=== PATIENT | female | born 1955 | race Caucasian/White ===

== ENCOUNTER 2018-05-08 18:46 | Inpatient (IN) | payer OTHER ==
[~2018-05-08] VITALS: Ht 177.8 cm; Wt 97.5 kg
[2018-05-08 20:11] LABS: BASOPHILS ABSOLUTE AUTO 0.05 K/mm3 (0.00-0.23); BASOPHILS PERCENT AUTO 0 % (0-2); EOSINOPHILS ABSOLUTE AUTO 0.01 K/mm3 (0.00-0.68); EOSINOPHILS PERCENT AUTO 0 % (0-6); Hematocrit 44.6 % (33.0-51.0); Hemoglobin 14.3 g/dL (11.5-16.0); IMMATURE GRAN ABSOLUTE AUTO 0.11 K/mm3 (0.00-0.10); IMMATURE GRAN PERCENT AUTO 0 % (0-1); LYMPHOCYTES ABSOLUTE AUTO 3.34 K/mm3 (0.84-5.20); LYMPHOCYTES PERCENT AUTO 13 % (21-46); MONOCYTES ABSOLUTE AUTO 1.66 K/mm3 (0.16-1.47); MONOCYTES PERCENT AUTO 7 % (4-13); Mean Corpuscular HGB 28.3 pg (26.0-34.0); Mean Corpuscular HGB Conc 32.1 g/dL (31.5-36.5); Mean Corpuscular Volume 88 fL (80-100); Mean Platelet Volume 10.3 fL (9.1-12.4); NEUTROPHILS PERCENT AUTO 80 % (41-73); Platelet Count 403 K/mm3 (150-400); RDW Coefficient Variation 14.2 % (11.7-14.2); Red Blood Cell Count 5.05 M/mm3 (3.80-5.20); White Blood Cell Count 25.27 K/mm3 (4.00-11.30)
[2018-05-08 20:26] LABS: Base Excess Venous 1.8 mmol/L; Bicarbonate Venous 25.5 mmol/L (24.0-30.0); PCO2 Venous 42.8 mmHg (38-42); PO2 Venous 62.3 mmHg (38-42)
[2018-05-08 20:31] LABS: Albumin, Blood 3.2 g/dL (3.4-5.0); Albumin/Globulin Ratio 0.8 (0.8-1.8); Bilirubin, Total 0.8 mg/dL (0.1-1.0); Bun/Creatinine Ratio 22.4 (12.0-20.0); Calcium, Blood 8.2 mg/dL (8.5-10.1); Creatinine, Blood 1.07 mg/dL (0.40-1.00); Globulin, Blood 3.8 g/dL (2.2-4.0); Potassium, Blood 3.4 mmol/L (3.5-5.5)
[2018-05-08 20:36] LABS: Source, Urine Peds U Bag
[2018-05-08 20:43] LABS: Influenza A Negative (NEGATIVE); Influenza B Negative (NEGATIVE)
[2018-05-08 20:45] LABS: Appearance, Urine Clear (Clear); Bilirubin, Urine Neg (Neg); Blood, Urine 5+ (Neg); Color, Urine Yellow (P-Yellow); Glucose Qualitative, Urine 3+ (Neg); Ketones, Urine Neg (Neg); Leukocyte Esterase, Urine Neg (Neg); Nitrite, Urine Neg (Neg); Protein, Urine 3+ (Neg); Specific Gravity, Urine 1.015 (1.003-1.022); Urobilinogen, Urine NORM (Normal)
[2018-05-08 20:54] LABS: Bacteria Rare /hpf; Red Blood Cells, Urine 0-2 /hpf (0-2); Squamous Epithelial Cells Few /hpf (Few); White Blood Cells, Urine 0-2 /hpf (0-5)
--- NOTE | 2018-05-08 23:52 | NUR ---
SPOKE WITH MARGARETTE CASANOVA TO CLARIFY TIMING OF NEXT [facility] ASDMINISTRATION; HELD MIDNIGHT DOSE AND PHARMACY WILL RETIME NEXT ADMINISTRATION ACCORDINGLY. SHANTA CARRILLO
[2018-05-08] MEDS ORDERED: LO-DOSE ASPIRIN81 MG PO (23:57)
[2018-05-09] MEDS ORDERED: LEVSOD50 PO (00:02)
[2018-05-09] MEDS ORDERED: DULO60 PO (00:03)
[2018-05-09] MEDS ORDERED: CHOL10002 PO (00:04)
[2018-05-09] MEDS ORDERED: CLAR500CR (00:05)
[2018-05-09] MEDS ORDERED: BUPR75 PO (00:06)
--- NOTE | 2018-05-09 02:22 | NUR ---
SPOKE TO HOSPITALIST EGARDING PATIENTS RESPIRATORY SYMPTOMS. RECEVED ORDERS FOR b&d PROTOCOLS AND MEDS PER EMAR. WILL CONTINUE TO MONITOR.
[2018-05-09 04:54] LABS: BASOPHILS ABSOLUTE AUTO 0.09 K/mm3 (0.00-0.23); BASOPHILS PERCENT AUTO 0 % (0-2); EOSINOPHILS ABSOLUTE AUTO 0.07 K/mm3 (0.00-0.68); EOSINOPHILS PERCENT AUTO 0 % (0-6); Hematocrit 47.9 % (33.0-51.0); Hemoglobin 15.3 g/dL (11.5-16.0); IMMATURE GRAN PERCENT AUTO 1 % (0-1); LYMPHOCYTES ABSOLUTE AUTO 4.08 K/mm3 (0.84-5.20); LYMPHOCYTES PERCENT AUTO 20 % (21-46); MONOCYTES ABSOLUTE AUTO 1.27 K/mm3 (0.16-1.47); MONOCYTES PERCENT AUTO 6 % (4-13); Mean Corpuscular HGB 28.4 pg (26.0-34.0); Mean Corpuscular HGB Conc 31.9 g/dL (31.5-36.5); Mean Corpuscular Volume 89 fL (80-100); Mean Platelet Volume 10.3 fL (9.1-12.4); NEUTROPHILS ABSOLUTE AUTO 15.25 K/mm3 (1.96-9.15); NEUTROPHILS PERCENT AUTO 73 % (41-73); Platelet Count 400 K/mm3 (150-400); RDW Coefficient Variation 14.4 % (11.7-14.2); RDW Standard Deviation 46.6 fL (35.1-46.3); Red Blood Cell Count 5.39 M/mm3 (3.80-5.20); White Blood Cell Count 20.86 K/mm3 (4.00-11.30)
[2018-05-09 05:17] LABS: Anion Gap 8 mmol/L (6-16); Blood Urea Nitrogen 19 mg/dL (8-24); Bun/Creatinine Ratio 23.2 (12.0-20.0); CO2, Blood 25 mmol/L (21-32); Calcium, Blood 8.4 mg/dL (8.5-10.1); Chloride, Blood 104 mmol/L (98-108); Creatinine, Blood 0.82 mg/dL (0.40-1.00); Glomerular Filtration Rate >60 (60-); Glucose, Blood 163 mg/dL (70-99); Potassium, Blood 3.5 mmol/L (3.5-5.5); Sodium, Blood 137 mmol/L (136-145)
--- NOTE | 2018-05-09 16:18 | NUR ---
PT IS A/OX3, PLEASANT AND COOPERATIVE, THE PT IS UP IND IN HER ROOM, THE PT WAS UP FOR A SHOWER THIS AM TOLERATED IT WELL OFF OXYGEN, THE PT WAS MEDICATED FOR COUGH X1 TODAY SO FAR, THE PT WAS MEDICATED FOR NAUSEA X1 SO FAR THIS SHIFT, PT APPEARS TO BE BREATHING EASILY AT REST, PT WAS GIVEN BREATHING TREATMENTS T/O THE DAY, PT HAS A WOUND UNDER THE RIGHT BREAST THAT IS OPEN TO AIR, PT DENIED ANY PAIN, CALL LIGHT IN REACH, WILL CONTINUE TO MONITOR AND ASSESS FOR CHANGES
[2018-05-10 08:25] LABS: BASOPHILS ABSOLUTE AUTO 0.12 K/mm3 (0.00-0.23); BASOPHILS PERCENT AUTO 1 % (0-2); EOSINOPHILS ABSOLUTE AUTO 0.18 K/mm3 (0.00-0.68); EOSINOPHILS PERCENT AUTO 2 % (0-6); Hematocrit 44.7 % (33.0-51.0); Hemoglobin 14.1 g/dL (11.5-16.0); IMMATURE GRAN ABSOLUTE AUTO 0.05 K/mm3 (0.00-0.10); IMMATURE GRAN PERCENT AUTO 0 % (0-1); LYMPHOCYTES ABSOLUTE AUTO 3.78 K/mm3 (0.84-5.20); LYMPHOCYTES PERCENT AUTO 32 % (21-46); MONOCYTES ABSOLUTE AUTO 0.76 K/mm3 (0.16-1.47); MONOCYTES PERCENT AUTO 6 % (4-13); Mean Corpuscular HGB 28.4 pg (26.0-34.0); Mean Corpuscular HGB Conc 31.5 g/dL (31.5-36.5); Mean Corpuscular Volume 90 fL (80-100); Mean Platelet Volume 10.5 fL (9.1-12.4); NEUTROPHILS ABSOLUTE AUTO 7.01 K/mm3 (1.96-9.15); NEUTROPHILS PERCENT AUTO 59 % (41-73); Platelet Count 353 K/mm3 (150-400); RDW Coefficient Variation 14.4 % (11.7-14.2); RDW Standard Deviation 47.8 fL (35.1-46.3); Red Blood Cell Count 4.96 M/mm3 (3.80-5.20)
[2018-05-10 08:53] LABS: Bun/Creatinine Ratio 16.7 (12.0-20.0); Calcium, Blood 8.4 mg/dL (8.5-10.1); Creatinine, Blood 1.02 mg/dL (0.40-1.00); Potassium, Blood 3.2 mmol/L (3.5-5.5)
[2018-05-10 08:56] LABS: Vancomycin, Trough 25.5 ug/mL (5.0-10.0)
[2018-05-10] MEDS ORDERED: INSULANPEN SC (11:18)
[2018-05-10] MEDS ORDERED: Humalog100 UNIT/1 SC (11:19)
[2018-05-10] MEDS ORDERED: BENZ100A PO (11:20)
[2018-05-10] MEDS ORDERED: Bactrim Ds Tab1 EACH PO (11:21)
[2018-05-10 13:08] LABS: Vancomycin, Random 22.2 ug/mL
== END 2018-05-10 13:09 | disposition home or self-care (01) | DRG 871 ==
LOC: ER 18:46 → MEDS 22:06 → ENPENDDIS 05-10 10:03 → MEDS 05-10 13:09
PROVIDERS: Emergency Medicine; Hospitalist; ADMIT Hospitalist
DX: A41.9 Sepsis, unspecified organism (principal); G92 Toxic encephalopathy; N17.9 Acute kidney failure, unspecified; R65.20 Severe sepsis without septic shock; E11.65 Type 2 diabetes mellitus with hyperglycemia; E11.42 Type 2 diabetes mellitus with diabetic polyneuropathy; J45.909 Unspecified asthma, uncomplicated; N61.1 Abscess of the breast and nipple; F17.210 Nicotine dependence, cigarettes, uncomplicated; E66.9 Obesity, unspecified; Z79.4 Long term (current) use of insulin; R11.2 Nausea with vomiting, unspecified; R19.7 Diarrhea, unspecified
CPT/HCPCS: 36415; 76642; 80048; 80053; 80202; 81001; 82803; 82947; 83605; 84145; 85025; 87804; 94640; 94760; 96374; 99285-25; J1650; J2405; J2543; J3370; J7050

== ENCOUNTER 2019-12-03 03:02 | Inpatient (IN) | payer OTHER ==
[~2019-12-03] VITALS: Ht 177.8 cm; Wt 91.8 kg
[~2019-12-03 03:02] MED LIST: BENZ100A PO; BUPR75 PO; Bactrim Ds Tab1 EACH PO; CHOL10002 PO; CLAR500CR; DULO60 PO; Humalog100 UNIT/1 SC; INSULANPEN SC; LEVSOD50 PO; LO-DOSE ASPIRIN81 MG PO
[2019-12-03] MEDS ORDERED: ATOR20 PO (03:29)
[2019-12-03] MEDS ORDERED: HYDR1TAB94 PO (03:30)
[2019-12-03] MEDS ORDERED: ALBU2.5V5 INH (03:30)
[2019-12-03] MEDS ORDERED: DULO60 PO (03:30)
[2019-12-03] MEDS ORDERED: INSULIN AS100 UNIT/9 SQ (03:31)
[2019-12-03 03:52] LABS: BASOPHILS ABSOLUTE AUTO 0.07 K/mm3 (0.00-0.23); BASOPHILS PERCENT AUTO 0 % (0-2); EOSINOPHILS ABSOLUTE AUTO 0.01 K/mm3 (0.00-0.68); EOSINOPHILS PERCENT AUTO 0 % (0-6); Hematocrit 47.6 % (33.0-51.0); Hemoglobin 15.5 g/dL (11.5-16.0); IMMATURE GRAN ABSOLUTE AUTO 0.09 K/mm3 (0.00-0.10); IMMATURE GRAN PERCENT AUTO 1 % (0-1); LYMPHOCYTES ABSOLUTE AUTO 1.66 K/mm3 (0.84-5.20); LYMPHOCYTES PERCENT AUTO 9 % (21-46); MONOCYTES ABSOLUTE AUTO 0.43 K/mm3 (0.16-1.47); MONOCYTES PERCENT AUTO 2 % (4-13); Mean Corpuscular HGB 27.6 pg (26.0-34.0); Mean Corpuscular HGB Conc 32.6 g/dL (31.5-36.5); Mean Corpuscular Volume 85 fL (80-100); Mean Platelet Volume 10.7 fL (9.1-12.4); NEUTROPHILS ABSOLUTE AUTO 17.21 K/mm3 (1.96-9.15); NEUTROPHILS PERCENT AUTO 88 % (41-73); Platelet Count 434 K/mm3 (150-400); RDW Coefficient Variation 13.4 % (11.7-14.2); RDW Standard Deviation 41.7 fL (35.1-46.3); Red Blood Cell Count 5.62 M/mm3 (3.80-5.20); White Blood Cell Count 19.47 K/mm3 (4.00-11.30)
[2019-12-03 03:56] LABS: Source, Urine Voided
[2019-12-03 03:57] LABS: Bilirubin, Urine Neg (Neg); Blood, Urine 2+ (Neg); Glucose Qualitative, Urine 4+ (Neg); Ketones, Urine 2+ (Neg); Leukocyte Esterase, Urine Neg (Neg); Nitrite, Urine Neg (Neg); Protein, Urine 3+ (Neg); Urobilinogen, Urine NORM (Normal)
[2019-12-03 03:59] LABS: Appearance, Urine Clear (Clear); Color, Urine Yellow (P-Yellow)
[2019-12-03 04:04] LABS: Alanine Aminotransfer (ALT/SGP 23 U/L (12-78); Albumin, Blood 3.8 g/dL (3.4-5.0); Albumin/Globulin Ratio 0.8 (0.8-1.8); Alk Phos 179 U/L (50-136); Anion Gap 13 mmol/L (6-16); Aspartate Aminotrans (AST/SGOT 21 U/L (12-37); Bilirubin, Total 0.7 mg/dL (0.1-1.0); Blood Urea Nitrogen 15 mg/dL (8-24); Bun/Creatinine Ratio 21.4 (12.0-20.0); CO2, Blood 22 mmol/L (21-32); Calcium, Blood 9.8 mg/dL (8.5-10.1); Chloride, Blood 96 mmol/L (98-108); Globulin, Blood 4.7 g/dL (2.2-4.0); Glomerular Filtration Rate >60 (60-); Glucose, Blood 389 mg/dL (70-99); Potassium, Blood 3.5 mmol/L (3.5-5.5); Sodium, Blood 131 mmol/L (136-145); Total Protein, Blood 8.5 g/dL (6.4-8.2)
[2019-12-03 04:16] LABS: Bacteria Not Seen /hpf; Red Blood Cells, Urine 0-2 /hpf (0-2); Squamous Epithelial Cells Rare /hpf (Few); White Blood Cells, Urine Not Seen /hpf (0-5)
[2019-12-03 04:48] LABS: U Amphetamine Screen Not Detected; U Barbituate Screen Not Detected; U Benzodiazapine Screen Not Detected; U Buprenorphine Screen Not Detected; U Cannabinoids Screen DETECTED; U Cocaine Screen Not Detected; U Methadone Screen Not Detected; U Methamphetamine Screen Not Detected; U Opiates Screen Not Detected; U Oxycodone Screen Not Detected; U Phencyclidine Screen Not Detected; U Propoxyphene Screen Not Detected
--- NOTE | 2019-12-03 09:00 | NUR ---
PT ARRIVAL... PT ARRIVED ON UNIT APROX 0830, PT IS SLEEPY BUT WAKES TO VERBAL STIMULI, PT IS ABLE TO FOLLOW SIMPLE COMMANDS BUT FALLS BACK ASLEEP QUICKLY. PT'S VS STABLE AT THIS TIME. PT HAS TRACE EDEMA NOTED TO HER BLE. L/S EXP WHEEZES HEARD T/O PT IS ON 4L NC WITH O2 SATS>90%, PT IS NORMALLY ON RA AT BASELINE. BT PRESENT AND NORMOACTIVE,ABD IS SOFT AND NONTENDER TO PALP. PT IS ABLE TO STATE THE MONTH, YEAR, HOSPTIAL AND FULL NAME/BIRTHDAY. PT IS IN [place] IN THE 70'S-90'S NO ST CHANGES NOTED ON TELE. PT DENIES ANY CHEST PAIN/PRESSURE N/V OR INCREASED SOB. PT'S TROPONINS HAVE BEEN ELEVATED SINCE ADMIT. CARDIOLOGY CONSULTED AND AWARE. CALL LIGHT IN REACH WILL CONTINUE TO MONITOR.
[2019-12-03 12:33] LABS: CPK Creatine Kinase 143 U/L (26-193)
[2019-12-03] MEDS ORDERED: Loratadine10 MG PO (14:50)
[2019-12-03] MEDS ORDERED: METO10 PO (14:53)
[2019-12-03] MEDS ORDERED: Vitamin D2000 UNIT PO (14:58)
[2019-12-03] MEDS ORDERED: LEVSOD150 PO ×2 (14:59→15:00)
[2019-12-03] MEDS ORDERED: PANT40 PO (15:01)
--- NOTE | 2019-12-03 16:10 | NUR ---
ECHOCARDIOGRAM COMPLETED
--- NOTE | 2019-12-03 18:01 | NUR ---
SHIFT SUMMARY... NO ACUTE NEGATIVE CHANGES NOTED THIS SHIFT. PT'S VS HAVE BEEN STABLE. PT HAS CLEARED MORE AND IS NOT CONFUSED AND FORGETFUL SHE WAS ON ADMIT. PT'S SISTER CAME TO VISIT AND WAS IN THE ROOM WHEN BOW STAPLER INFORMED PT AND HER SISTER ABOUT HER NEEDING AN ANGIO GRAM. PT VERBALIZED HER UNDERSTANDING AND CONSENT WAS SIGNED. PT HAS BEEN GETTING UP SBA TO THE TOILET TO VOID, NO BM THIS SHIFT. HEPARIN GTT RUNNING PER ORDERS AT 14U/KG. NS WAS STARTED AT 100MLS/HR. PT IS TO BE NPO AFTER MIDNIGHT. PT DENIES ANY CHEST PAIN/PRESSURE N/V OR INCREASED SOB. CALL LIGHT IN REACH WILL CONTINUE TO MONITOR UNTIL REPORT IS GIVEN TO ONCOMING RN.
--- NOTE | 2019-12-03 19:00 | NUR ---
ASSUMED CARE OF PT, BEDSIDE REPORT RECEIVED. PT IS RESTING QUIETLY LYING IN BED ON RIGHT SIDE. SHE DENIES N/V, DENIES CP/PRESSURE, DENIES SOB/DYSPNEA, DENIES NUMBNESS/TINGLING, IS ABLE TO STATE THAT SHE IS IN THE HOSPITAL IN [facility], THE CIRCUMSTANCES SURROUNDING PRESENTATION AT [facility] WELL THE PLAN TO "LOOK AT MY HEART TOMORROW MORNING." SHE DENIES FURTHER NEEDS AT THIS TIME. SATS ARE MAINTAINING WITH OXYGEN VIA NASAL CANNULA AT 3 L/MIN, RESP RATE 18, NO VISIBLE INCREASED WORK OF BREATHING AT THIS TIME, INS/EXP WHEEZES THROUGHOUT AND HARSH DRY COUGH IS NOTED HOWEVER PT REPORTS THAT COUGH IS BASELINE AND DENIES SPUTUM PRODUCTION. HRR, SINUS ON MONITOR, RATE 60S, PRESSURE 100/50 AT LAST CHECK, NO EDEMA IS NOTED, BRISK CAP REFILL, SKIN PWD. ACTIVE BOWEL TONES X 4 QUADRANTS, ABD SOFT, NONTENDER TO LIGHT PALPATION. PT HAS BEEN UP TO VOID, DENIES NEED AT THIS TIME. IV ACCESS NOTED BILAT UPPER ARMS, HEPARIN INFUSING AT 14 UNITS/KG/HR SET FOR 81.6 KG, NORMAL SALINE INFUSING AT 100 ML/HR.
[2019-12-03 20:03] LABS: CPK Creatine Kinase 132 U/L (26-193)
[2019-12-04 06:18] LABS: BASOPHILS ABSOLUTE AUTO 0.13 K/mm3 (0.00-0.23); BASOPHILS PERCENT AUTO 1 % (0-2); EOSINOPHILS ABSOLUTE AUTO 0.21 K/mm3 (0.00-0.68); EOSINOPHILS PERCENT AUTO 1 % (0-6); Hematocrit 43.3 % (33.0-51.0); Hemoglobin 13.4 g/dL (11.5-16.0); IMMATURE GRAN ABSOLUTE AUTO 0.06 K/mm3 (0.00-0.10); IMMATURE GRAN PERCENT AUTO 0 % (0-1); LYMPHOCYTES ABSOLUTE AUTO 7.05 K/mm3 (0.84-5.20); LYMPHOCYTES PERCENT AUTO 45 % (21-46); MONOCYTES ABSOLUTE AUTO 0.82 K/mm3 (0.16-1.47); MONOCYTES PERCENT AUTO 5 % (4-13); Mean Corpuscular HGB 27.5 pg (26.0-34.0); Mean Corpuscular HGB Conc 30.9 g/dL (31.5-36.5); Mean Corpuscular Volume 89 fL (80-100); Mean Platelet Volume 10.9 fL (9.1-12.4); NEUTROPHILS ABSOLUTE AUTO 7.56 K/mm3 (1.96-9.15); NEUTROPHILS PERCENT AUTO 48 % (41-73); Platelet Count 366 K/mm3 (150-400); RDW Standard Deviation 45.3 fL (35.1-46.3); Red Blood Cell Count 4.87 M/mm3 (3.80-5.20); White Blood Cell Count 15.83 K/mm3 (4.00-11.30)
--- NOTE | 2019-12-04 06:45 | NUR ---
PT RESTS QUIETLY THROUGHOUT SHIFT, DENIES CP/PRESSURE, DENIES N/V, DENIES NUMBNESS/TINGLING, DENIES INCREASING SOB/DYSPNEA. 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 BRADYCARDIA TO 50S NOTED FOLLOWING HS ADMINISTRATION OF LOPRESSOR, PRESSURES MAINTAIN, PT DENIES DIZZINESS/VERTIGO WITH UP TO TOILET FOR VOIDS. 24 HOUR URINE COLLECTION STARTED AT 2313 THIS SHIFT. LUNGS CONT WITH WHEEZES, SATS MAINTAIN WITH OXYGEN VIA NASAL CANNULA AT 3 L/MIN, HARSH DRY COUGH CONTINUES.
[2019-12-04 06:50] LABS: Alanine Aminotransfer (ALT/SGP 19 U/L (12-78); Albumin/Globulin Ratio 0.8 (0.8-1.8); Alk Phos 128 U/L (50-136); Anion Gap 9 mmol/L (6-16); Aspartate Aminotrans (AST/SGOT 19 U/L (12-37); Bilirubin, Total 0.4 mg/dL (0.1-1.0); Blood Urea Nitrogen 24 mg/dL (8-24); Bun/Creatinine Ratio 25.1 (12.0-20.0); CO2, Blood 24 mmol/L (21-32); Calcium, Blood 8.8 mg/dL (8.5-10.1); Chloride, Blood 108 mmol/L (98-108); Creatinine, Blood 0.96 mg/dL (0.40-1.00); Globulin, Blood 3.6 g/dL (2.2-4.0); Glomerular Filtration Rate >60 (60-); Glucose, Blood 154 mg/dL (70-99); Potassium, Blood 3.8 mmol/L (3.5-5.5); Total Protein, Blood 6.6 g/dL (6.4-8.2)
[2019-12-04 06:51] LABS: Sodium, Blood 141 mmol/L (136-145)
--- NOTE | 2019-12-04 08:00 | NUR ---
AM NOTE... ASSUMED CARE OF PT APROX 0700, PT IS A&Ox4 AND NPO FOR ANGIO THIS AM AT 0900. PT IS ON HEPARIN GTT RUNNING PER ORDERS. PT DENIES CHEST PAIN/PRESSURE N/V OR INCREASED SOB. PT IS ON 2LNC TITRATED FROM 3LNC L/S INSP/EXP WHEEZES HEARD T/O. BT PRESENT AND NORMOACTIIVE ABD IS SOFT AND NONTENDER TO PALP. NO EDEMA NOTED ON ASSESSMENT. NS RUNNING AT 100MLS/HR. OTHER VS STABLE AT THIS TIME. CALL LIGHT IN REACH WILL CONTINUE TO MONITOR.
--- NOTE | 2019-12-04 11:45 | NUR ---
PT UPDATE... PT BACK FROM ANGIO, NO INTERVENTIONS DONE, RIGHT WRIST ACCESS WITH TR BAND. PT DENIES ANY CHEST PAIN/PRESSURE N/V OR SOB. PT'S VS STABLE. PT IS ON 2L NC WITH O2 SATS>90%. PT'S DAUGHTER AT THE BEDSIDE FULLY UPDATED. CALL LIGHT IN REACH WILL CONTINUE TO MONITOR.
--- NOTE | 2019-12-04 17:35 | NUR ---
SHIFT SUMMARY... NO ACUTE NEGATIVE EVENTS NOTED THIS SHIFT. PT'S RIGHT RADIAL SITE SI C/D/I TR BAND DEFLATED WNL. PT'S VS STABLE, PT IS ON 2L NC WITH O2 SATS>92%. PT HAS BEEN GETTING UP TO THE TOILET SBA TO VOID. PT DENIES ANY CHEST PAIN/PRESSURE N/V OR SOB. PT IS TO BE NPO AFTER MIDNIGHT FOR ULTRA SOUND. NO BM THIS SHIFT. CALL LIGHT IN REACH WILL CONTINUE TO MONITOR.
[2019-12-05 03:27] LABS: Hematocrit 35.4 % (33.0-51.0); Hemoglobin 10.9 g/dL (11.5-16.0); Mean Corpuscular HGB 27.7 pg (26.0-34.0); Mean Corpuscular HGB Conc 30.8 g/dL (31.5-36.5); Mean Corpuscular Volume 90 fL (80-100); Mean Platelet Volume 10.9 fL (9.1-12.4); Platelet Count 259 K/mm3 (150-400); RDW Coefficient Variation 13.7 % (11.7-14.2); RDW Standard Deviation 45.5 fL (35.1-46.3); Red Blood Cell Count 3.94 M/mm3 (3.80-5.20); White Blood Cell Count 10.06 K/mm3 (4.00-11.30)
[2019-12-05 03:47] LABS: Anion Gap 5 mmol/L (6-16); Blood Urea Nitrogen 19 mg/dL (8-24); CO2, Blood 25 mmol/L (21-32); Calcium, Blood 8.2 mg/dL (8.5-10.1); Chloride, Blood 112 mmol/L (98-108); Creatinine, Blood 0.73 mg/dL (0.40-1.00); Glomerular Filtration Rate >60 (60-); Glucose, Blood 163 mg/dL (70-99); Potassium, Blood 3.6 mmol/L (3.5-5.5); Sodium, Blood 142 mmol/L (136-145)
--- NOTE | 2019-12-05 04:25 | NUR ---
SHIFT SUMMARY: PATIENT SLEPT WELL THIS SHIFT, SBA TO BATHROOM, STEADY ON FEET. APPROX 0335 PATIENT HAD AN 8 BEAT RUN OF VTACH, ASYMPTOMATIC, NO OTHER ISSUES NOTED. VSS, CALL LIGHT WITHIN REACH, BED LOW AND LOCKED.
--- NOTE | 2019-12-05 09:00 | NUR ---
AM NOTE... ASSUMED CARE OF PT APROX 0700, PT IS A&Ox4 AND IND IN THE ROOM. PT'S VS STABLE, HR IN THE MID 50'S-60'S. BP STABLE. L/S WHEEZES HEARD T/O PT HAS BEEN ON 2L NC WITH O2 SATS>95%. BT PRESENT AND NORMOACTIVE ABD IS SOFT AND NONTENDER TO PALP. NO EDEMA NOTED ON ASSESSMENT. PT'S BP HAS BEEN STABLE. PT HAS BEEN IND TO THE TOILET TO VOID. CALL LIGHT IN REACH WILL CONTINUE TO MONITOR.
[2019-12-05] MEDS ORDERED: METO50 PO (14:09)
[2019-12-05] MEDS ORDERED: Prinivil10 MG PO (14:09)
--- NOTE | 2019-12-05 14:55 | NUR ---
PT D/C HOME... PT D/C HOME WITH ALL OF HER BELONGINGS. BOTH IV'S REMOVED WNL. PT'S VS STABLE. NEW MEDICATION EDUCATION PROVIDED TO PT IN VERBAL AND WRITTEN FORM. PT VERBALIZED HER UNDERSTANDING. PT DENIED ANY CHEST PAIN/PRESSURE N/V OR SOB. PT WAS ESCORTED OUT VIA W/C.
[2019-12-08 00:11] LABS: METANEPHRINE, UR 67 ug/L (Undefined)
[2019-12-08 06:05] LABS: METANEPHRINE, PL 40.7 pg/mL (0.0-88.0)
== END 2019-12-05 14:50 | disposition home or self-care (01) | DRG 77 ==
LOC: ER 03:02 → ICUW 03:03
PROVIDERS: Internal Medicine; Internal Medicine Interventional Cardiology; Student in an Organized Health Care Education/Training Program; ADMIT Internal Medicine
PROC: 4A023N7 Measurement of Cardiac Sampling and Pressure, Left Heart, Percutaneous Approach (ICD-10-PCS; principal; 2019-12-04)
PROC: B2111ZZ Fluoroscopy of Multiple Coronary Arteries using Low Osmolar Contrast (ICD-10-PCS; 2019-12-04)
DX: I67.4 Hypertensive encephalopathy (principal); I21.A1 Myocardial infarction type 2; I16.1 Hypertensive emergency; E87.2 Acidosis; Z79.4 Long term (current) use of insulin; Z79.82 Long term (current) use of aspirin; F17.210 Nicotine dependence, cigarettes, uncomplicated; J45.909 Unspecified asthma, uncomplicated; E11.51 Type 2 diabetes mellitus with diabetic peripheral angiopathy without gangrene; E11.65 Type 2 diabetes mellitus with hyperglycemia; Z79.02 Long term (current) use of antithrombotics/antiplatelets; E11.40 Type 2 diabetes mellitus with diabetic neuropathy, unspecified; E66.9 Obesity, unspecified; Z68.29 Body mass index [BMI] 29.0-29.9, adult; Z20.828 Contact with and (suspected) exposure to other viral communicable diseases; I10 Essential (primary) hypertension; Q24.8 Other specified congenital malformations of heart
CPT/HCPCS: 36415; 70450; 74177; 76937; 80048; 80053; 81001; 81050; 82550; 82947; 83605; 83835; 84484; 85025; 85027; 85347; 85730; 93005; 93010; 93306; 93458; 93975; 94640; 94761; 96365; 96366; 96375; 99152; 99285-25; A9270-GY; C1769; C1894; G0008; G0378; J1644; J1650; J2060; J2250; J2405; J3010; J7030; J7050; Q2038; Q9967; U0003